=== PATIENT | male | born 1945 | race Caucasian/White ===

== ENCOUNTER → 2018-05-27 | Outpatient (CLI) | payer BC | LOC: COL.RAD 07:04 | DX: I67.82 Cerebral ischemia (principal) ==

== ENCOUNTER 2021-08-13 17:29 | Inpatient (IN) | payer MEDICARE ==
[~2021-08-13] VITALS: Ht 180.3 cm; Wt 98.9 kg
[2021-08-13 17:59] LABS: BASO % 0.2 % (0.0-2.0); EOS % 0.1 % (0-4.0); GRAN # 9.2 K/mm3 (1.4-6.5); GRAN % 79.3 % (42.2-75.2); HEMATOCRIT 44.7 % (42.0-52.0); HEMOGLOBIN 14.2 g/dl (13.5-18.0); LYMPH # 1.2 K/mm3 (1.2-3.4); LYMPH % 10.1 % (20.0-51.0); MEAN CELL VOLUME 96 fl (80.0-100.0); MEAN CORPUSCULAR HEMOGLOBIN 30 pg (27.0-31.0); MEAN CORPUSCULAR HGB CONC 32 g/dl (33.0-37.0); MEAN PLATELET VOLUME 10.1 fl (7.4-10.4); MONO # 1.2 K/mm3 (0.1-0.6); MONO % 9.9 % (1.7-9.3); PLATELET COUNT 334 K/mm3 (130-400); RED BLOOD COUNT 4.68 M/mm3 (4.20-5.60); REDCELL DISTRIBUTION WIDTH-CV 13.8 % (11.5-14.5)
[2021-08-13] MEDS ORDERED: LOPRESSOR 550 MG/TAB PO (18:04)
[2021-08-13] MEDS ORDERED: DOXYCYCLINE HY100 MG PO (18:05)
[2021-08-13] MEDS ORDERED: PREDNISONE10 MG PO (18:05)
[2021-08-13 18:11] LABS: INR 1.4 (0.8-3.0)
[2021-08-13 18:13] LABS: PARTIAL THROMBOPLASTIN TIME 27.8 SECONDS (26.0-37.0)
[2021-08-13 18:19] LABS: ALBUMIN 3.2 gm/dL (3.4-4.8); BILIRUBIN,TOTAL 0.8 mg/dL (0.2-1.2); CALCIUM 9.1 mg/dL (8.4-10.2); CREATININE, serum 1.26 mg/dL (0.72-1.25); POTASSIUM 5.1 mmol/L (3.5-4.5); TOTAL PROTEIN 6.4 gm/dL (6.2-8.1)
[2021-08-13 18:25] LABS: TROPONIN-I 0.026 ng/mL (0.00-0.033)
[2021-08-13 20:58] LABS: C-REACTIVE PROTEIN 0.7 mg/dL (0.00-0.50); PHOSPHOROUS 3.4 mg/dL (2.3-4.7)
[2021-08-13 21:20] LABS: TSH w REFLEX 2.523 uIU/mL (0.350-4.940)
[2021-08-14] VITALS (620 sets, daily range): BP systolic 107–142; BP diastolic 62–110; PULSE 68–117; TEMP 97.6–98.6; O2SAT 72–100
--- NOTE | 2021-08-14 00:43 | NUR ---
Patient arrived to ICU 5 at 0000. Alert and orientated. All questions answered. Orientated to ICU. Cardizem and heparin infusing. Denies needs. Call light in reach.
--- NOTE | 2021-08-14 05:51 | NUR ---
Patient had uneventful night. Remains on cardizem and heparin. Denies needs this AM. Call light in reach.
[2021-08-14 07:08] LABS: BASO # 0.1 K/mm3 (0.0-0.2); BASO % 0.6 % (0.0-2.0); EOS # 0.1 K/mm3 (0.0-0.7); EOS % 1.6 % (0-4.0); GRAN # 5.7 K/mm3 (1.4-6.5); GRAN % 70.1 % (42.2-75.2); HEMATOCRIT 41.6 % (42.0-52.0); HEMOGLOBIN 13.3 g/dl (13.5-18.0); LYMPH # 1.3 K/mm3 (1.2-3.4); LYMPH % 16.5 % (20.0-51.0); MEAN CELL VOLUME 95 fl (80.0-100.0); MEAN CORPUSCULAR HEMOGLOBIN 30 pg (27.0-31.0); MEAN CORPUSCULAR HGB CONC 32 g/dl (33.0-37.0); MEAN PLATELET VOLUME 10.4 fl (7.4-10.4); MONO # 0.9 K/mm3 (0.1-0.6); PLATELET COUNT 250 K/mm3 (130-400); RED BLOOD COUNT 4.39 M/mm3 (4.20-5.60); REDCELL DISTRIBUTION WIDTH-CV 13.8 % (11.5-14.5)
--- NOTE | 2021-08-14 07:15 | NUR ---
Report given to AMANDA Browne
[2021-08-14 07:32] LABS: CALCIUM 8.5 mg/dL (8.4-10.2); CHOLESTEROL RISK RATIO 2.6; CREATININE, serum 0.97 mg/dL (0.72-1.25); POTASSIUM 4.2 mmol/L (3.5-4.5)
--- NOTE | 2021-08-14 12:01 | NUR ---
AT 0800 WHEN I ASSUMED CARE OF PATIENT, HEPARIN WAS RUNNING AT 1400 U/HR. AT 0940 HEPXA PROTOCOL CALLED FOR A 100 U/HR CHANGE TO 1300 U/HR. ON THE DEC THE HEPARIN DRIP WAS NOT UPDATED AND WAS SHOWING 1650 U/HR.
--- NOTE | 2021-08-14 14:43 | NUR ---
DR. ROMERO STATED THAT HE SPOKE TO LUIS ANGEL, THAT SHE WILL BE BEDSIDE FOR THE ECHO DAVIDSON AT 0645. ANESTHESIA WAS NOTIFIED TO BE BEDSIDE AT 0645.
--- NOTE | 2021-08-14 16:54 | NUR ---
MR. RODARTE HAS BEEN A PLEASANT MAN THAT HAS RESTED IN BED THROUGHOUT THE DAY. HE HAS NOT COMPLAINED OF ANY CHEST PAIN OR DISCOMFORT FROM HIS A-FLUTTER. HE UNDERSTAND WHT HIS CONDITION IS AND IS ABLE TO TEACH BACK ABOUT HIS POSSIBLE CARDIOVERSION TOMORROW. IS AT BEDSIDE. WILL CONTINUE TO MONITOR.
--- NOTE | 2021-08-14 19:30 | NUR ---
Received report from AMANDA Saucedo. All medications verified and all questions answered. Patient on heparin gtt at 1150units/hr and cardizem at 10mg/hr. VSS. Patient resting in bed on personal phone with . No concerns or complaints noted at this tiME. Will resume care of patient at this time.
--- NOTE | 2021-08-14 21:44 | NUR ---
This RN gave patient denture cup and patient took out upper denture plate and left in personal gym bag along with clothing at bedside.
[2021-08-15] VITALS (302 sets, daily range): BP systolic 116–130; BP diastolic 76–92; PULSE 73–88; TEMP 97.5–98.4; O2SAT 55–100
--- NOTE | 2021-08-15 02:20 | NUR ---
This RN notified by telephone cleaner patient switched to sinus rhythm with a rate of 72bpm at 0210.
[2021-08-15 06:25] LABS: HEMATOCRIT 45.6 % (42.0-52.0); HEMOGLOBIN 14.9 g/dl (13.5-18.0); MEAN CELL VOLUME 93 fl (80.0-100.0); MEAN CORPUSCULAR HEMOGLOBIN 30 pg (27.0-31.0); MEAN CORPUSCULAR HGB CONC 33 g/dl (33.0-37.0); MEAN PLATELET VOLUME 10.2 fl (7.4-10.4); PLATELET COUNT 289 K/mm3 (130-400); RED BLOOD COUNT 4.93 M/mm3 (4.20-5.60); REDCELL DISTRIBUTION WIDTH-CV 13.9 % (11.5-14.5)
[2021-08-15 06:40] LABS: CALCIUM 8.9 mg/dL (8.4-10.2); CREATININE, serum 1.15 mg/dL (0.72-1.25); POTASSIUM 4.3 mmol/L (3.5-4.5)
--- NOTE | 2021-08-15 09:15 | NUR ---
ARNOLD Begum at bedside to discuss new medications with patient. All questions and concerns addressed at this time. VS stable. Reports breathing feels "better". Has had a good response to diuretics. IV heparin and cardizem stopped per ARNOLD Begum. Call light left within reach; will continue to monitor.
[2021-08-15] MEDS ORDERED: ELIQUIS 5MG PO (10:40)
--- NOTE | 2021-08-15 10:40 | NUR ---
Rn Managed Care met with patient and his , Gisselle (ph#[phone]) to discuss discharge planning. Patient lives in [place] with his and sees Dr. Pleitez for primary care. Patient obtains medications from [facility] with no difficulties and does not use any DME. Patient is independent with ADLS and is planning to discharge home today. Patient does not currently have Advance Directives but advised he and his are planning to complete this soon. Discharge Plan: Home
[2021-08-15] MEDS ORDERED: LASIX 40MG TABL40 MG PO (10:41)
[2021-08-15] MEDS ORDERED: TOPROL XL 25MG25 MG PO (10:41)
[2021-08-15] MEDS ORDERED: CORDARONE200 MG/TAB PO (10:42)
--- NOTE | 2021-08-15 11:38 | NUR ---
Discharge paperwork provided. IV's discontinued. Patient escorted from ICU with . Stable and in no distress upon discharge.
== END 2021-08-15 11:38 | disposition home or self-care (01) | DRG 308 ==
LOC: COL.ER 17:29 → ICU 20:08
PROVIDERS: Family Medicine; Nurse Practitioner Family
DX: I48.92 Unspecified atrial flutter (principal); I50.33 Acute on chronic diastolic (congestive) heart failure; E87.2 Acidosis; N17.9 Acute kidney failure, unspecified; Z96.652 Presence of left artificial knee joint; Z96.642 Presence of left artificial hip joint; D72.829 Elevated white blood cell count, unspecified; E87.5 Hyperkalemia; Z66 Do not resuscitate
CPT/HCPCS: 99223-AI; 99232-AI; 99239; J0153; J1644; J1940; J7030